=== PATIENT | female | born 1995 | race Caucasian/White ===

== ENCOUNTER 2021-01-08 07:39 | Inpatient (IN) | payer OTHER ==
[~2021-01-08] VITALS: Ht 162.6 cm; Wt 88.6 kg
[~2021-01-08 07:39] MED LIST: PREN1TAB60 PO
[2021-01-08 08:36] LABS: BASOPHILS % (AUTO) 1 % (0-1); EOSINOPHILS % (AUTO) 0 % (1-7); LYMPHOCYTES % (AUTO) 14 % (22-44); MEAN CORPUSCULAR HEMOGLOBIN 31.6 pg (27.0-34.8); MEAN CORPUSCULAR HGB CONC 33.8 g/dL (32.4-35.8); MEAN PLATELET VOLUME 8.5 fL (7.4-10.4); MONOCYTES % (AUTO) 6 % (2-9); NEUTROPHILS % (AUTO) 79 % (42-75); PLATELET COUNT 132 x10^3/uL (130-400); RED BLOOD COUNT 3.87 x10^6/uL (3.82-5.3)
[2021-01-08 08:47] LABS: ALANINE AMINOTRANSFERASE 341 U/L (12-78); ALBUMIN 2.5 g/dL (3.4-5.0); ANION GAP 7 mmol/L (5-15); BILIRUBIN, DIRECT 0.1 mg/dL (0.1-0.2); CALCIUM 8.9 mg/dL (8.5-10.1); CHLORIDE 106 mmol/L (98-107); CREATININE 0.65 mg/dL (0.55-1.02)
[2021-01-08 08:50] LABS: ALKALINE PHOSPHATASE 95 U/L (45-117); BILIRUBIN,TOTAL 0.6 mg/dL (0.2-1.0); TOTAL PROTEIN 6.5 g/dL (6.4-8.2)
[2021-01-08 08:53] LABS: MD SCAN
[2021-01-08 08:55] LABS: MICROSCOPIC INDICATED
[2021-01-08] MEDS ORDERED: OXYcodone IR 5MG TABLET ONE (08:56)
[2021-01-08] MEDS ORDERED: ONDANSETRON 2MG/ML, 2ML ONE ×2 (08:56→19:25)
[2021-01-08] MEDS ORDERED: PLEASE ENTER HEIGHT AND WEIGHT MC SCH (09:00)
[2021-01-08] MEDS ORDERED: LACTATED RINGERS 1,000 ML IVBOLUS ONE ×2 (09:00→10:30)
[2021-01-08] MEDS: ONDANSETRON 2MG/ML, 2ML IVPush PRN ×2 (09:02→19:26)
[2021-01-08] MEDS: OXYcodone 5 MG/5 ML ORAL.SOL UDC PO PRN (09:03)
[2021-01-08 09:15] VITALS: BP 150/98
[2021-01-08] MEDS ORDERED: MAGNESIUM SULF. PMX 20GM/500ML 500 ML IV ONE ×2 (09:30→16:52)
[2021-01-08] MEDS ORDERED: MAGNESIUM SULFATE PMX 4GM/100M 100 ML IVPB ONE (10:00)
[2021-01-08] MEDS: MAGNESIUM SULF. PMX 20GM/500ML 500 ML IV SCH ×2 (10:11→17:27)
[2021-01-08] MEDS ORDERED: FENTANYL PF 100 MCG/2ML ONE (10:29)
[2021-01-08] MEDS ORDERED: SODIUM CITRATE/CITRIC ACID 30 ML UDC PO ONE (10:30)
[2021-01-08] MEDS: LACTATED RINGERS 1,000 ML IV SCH ×3 (10:30→18:30)
[2021-01-08] MEDS ORDERED: METOCLOPRAMIDE 5 MG/ML, 2ML IV ONE (10:30)
[2021-01-08] MEDS ORDERED: CEFAZOLIN 1,000 MG ONE ×2 (10:31)
[2021-01-08] MEDS ORDERED: OXYTOCIN 10 UNITS/ML, 1ML ONE ×7 (10:31→12:03)
[2021-01-08] MEDS ORDERED: NEWBORN KIT ONE ×2 (10:38)
[2021-01-08 10:58] LABS: BASOPHILS % (AUTO) 0 % (0-1); EOSINOPHILS % (AUTO) 0 % (1-7); LYMPHOCYTES % (AUTO) 11 % (22-44); MEAN CORPUSCULAR HEMOGLOBIN 31.5 pg (27.0-34.8); MEAN PLATELET VOLUME 8.4 fL (7.4-10.4); MONOCYTES % (AUTO) 5 % (2-9); NEUTROPHILS % (AUTO) 84 % (42-75); PLATELET COUNT 84 x10^3/uL (130-400); RED BLOOD COUNT 3.86 x10^6/uL (3.82-5.3); RED CELL DISTRIBUTION WIDTH 14.9 % (9.6-15.2)
[2021-01-08 11:10] LABS: INTERNATIONAL NORMALIZED RATIO 1.02 (0.93-1.1); PROTHROMBIN TIME 10.9 Seconds (9.6-11.5)
[2021-01-08] MEDS ORDERED: SODIUM CITRATE/CITRIC ACID 15 ML UDC ONE (11:15)
[2021-01-08] MEDS ORDERED: METOCLOPRAMIDE 5 MG/ML, 2ML ONE (11:15)
[2021-01-08 11:26] LABS: MD SCAN
[2021-01-08] MEDS ORDERED: TRANEXAMIC ACID 100 MG/ML, 10ML ONE (12:01)
[2021-01-08] MEDS ORDERED: MISOPROSTOL 200 MCG TABLET ONE (12:06)
[2021-01-08] MEDS ORDERED: MISOPROSTOL 200 MCG TABLET PR PRN (13:00)
[2021-01-08] MEDS ORDERED: EPHEDRINE 50 MG/ML, 1ML IVPush PRN (13:00)
[2021-01-08] MEDS ORDERED: METOCLOPRAMIDE 5 MG/ML, 2ML IVPush PRN (13:00)
[2021-01-08] MEDS ORDERED: TRANEXAMIC ACID 100 MG/ML, 10ML IV ONE (13:00)
[2021-01-08] MEDS ORDERED: ONDANSETRON 2MG/ML, 2ML IVPush PRN (13:00)
[2021-01-08] MEDS ORDERED: LABETALOL 5MG/ML, 20ML IV PRN (13:00)
[2021-01-08] MEDS ORDERED: DIPHENHYDRAMINE 50 MG/ML, 1ML IVPush PRN (13:00)
[2021-01-08] MEDS ORDERED: OXYcodone 5 MG/5 ML ORAL.SOL UDC PO PRN (13:00)
[2021-01-08] MEDS ORDERED: FENTANYL PF 100 MCG/2ML IV PRN (13:00)
[2021-01-08] MEDS ORDERED: MEPERIDINE/PF 50 MG/ML ONE (13:12)
[2021-01-08] MEDS: MEPERIDINE/PF 25MG/0.5ML IVPush PRN ×2 (13:16→13:37)
[2021-01-08] MEDS ORDERED: OXYcodone 5 MG/5 ML ORAL.SOL UDC ONE (14:10)
[2021-01-08 14:19] LABS: ALANINE AMINOTRANSFERASE 535 U/L (12-78); ALBUMIN 2.6 g/dL (3.4-5.0); ANION GAP 9 mmol/L (5-15); CALCIUM 8.6 mg/dL (8.5-10.1); CHLORIDE 105 mmol/L (98-107); CREATININE 0.52 mg/dL (0.55-1.02)
[2021-01-08 14:21] LABS: ALKALINE PHOSPHATASE 102 U/L (45-117); BILIRUBIN,TOTAL 1.1 mg/dL (0.2-1.0); TOTAL PROTEIN 6.1 g/dL (6.4-8.2)
[2021-01-08] MEDS ORDERED: OXYTOCIN 30U/ 0.9% NaCL 500ML 500 ML ONE (14:28)
[2021-01-08] MEDS: OXYTOCIN 30U/ 0.9% NaCL 500ML 500 ML IV SCH (14:32)
[2021-01-08 15:16] LABS: MEAN CORPUSCULAR HGB CONC 34.7 g/dL (32.4-35.8); MEAN PLATELET VOLUME 8.2 fL (7.4-10.4); RED BLOOD COUNT 3.26 x10^6/uL (3.82-5.3); RED CELL DISTRIBUTION WIDTH 15.2 % (9.6-15.2)
[2021-01-08 15:28] LABS: ALANINE AMINOTRANSFERASE 692 U/L (12-78); ANION GAP 7 mmol/L (5-15); CALCIUM 7.6 mg/dL (8.5-10.1); CHLORIDE 105 mmol/L (98-107); CREATININE 0.62 mg/dL (0.55-1.02)
[2021-01-08 15:35] LABS: ALKALINE PHOSPHATASE 94 U/L (45-117); BILIRUBIN,TOTAL 1.9 mg/dL (0.2-1.0); TOTAL PROTEIN 5.2 g/dL (6.4-8.2)
[2021-01-08 15:37] LABS: PLATELET COUNT 39 x10^3/uL (130-400)
[2021-01-08 15:39] LABS: MD YES
[2021-01-08 15:56] LABS: BAND#(MANUAL) 0.94 x10^3/uL; BANDS%(MANUAL) 8 % (0-7); LYMPH#(MANUAL) 1.29 x10^3/uL (1-3.4); LYMPHS% (MANUAL) 11 % (22-44); METAMYELOCYTES# (MANUAL) 0.23 x10^3/uL (0-0); METAMYELOCYTES% (MANUAL) 2 % (0-1); MONOS#(MANUAL) 0.59 x10^3/uL (0.3-2.7); MONOS% (MANUAL) 5 % (2-9); SEG#(MANUAL) 8.66 x10^3/uL (1.8-6.8); SEGS% (MANUAL) 74 % (42-75)
[2021-01-08 16:01] LABS: <PLATELET ESTIMATE> DECREASED; <PLT MORPHOLOGY> NORMAL PLT MORPH; POLYCHROMASIA 1+
[2021-01-08] MEDS ORDERED: morphine SULFATE 10 MG/ML, 1ML ONE ×3 (16:12→22:24)
[2021-01-08] MEDS: MORPHINE SULFATE 4 MG/ML, 1ML IVPush PRN (16:17)
[2021-01-08 18:03] LABS: MEAN CORPUSCULAR HEMOGLOBIN 32.2 pg (27.0-34.8); RED BLOOD COUNT 3.19 x10^6/uL (3.82-5.3); RED CELL DISTRIBUTION WIDTH 15.2 % (9.6-15.2)
[2021-01-08 18:14] LABS: ALBUMIN 2.1 g/dL (3.4-5.0); ANION GAP 7 mmol/L (5-15); CALCIUM 7.7 mg/dL (8.5-10.1); CHLORIDE 102 mmol/L (98-107)
[2021-01-08 18:22] LABS: ALANINE AMINOTRANSFERASE 709 U/L (12-78); ALKALINE PHOSPHATASE 86 U/L (45-117); BILIRUBIN,TOTAL 2.3 mg/dL (0.2-1.0); TOTAL PROTEIN 5.2 g/dL (6.4-8.2)
[2021-01-08 18:57] LABS: MD YES; PLATELET COUNT 30 x10^3/uL (130-400)
[2021-01-08 19:01] LABS: BAND#(MANUAL) 1.34 x10^3/uL; BANDS%(MANUAL) 12 % (0-7); LYMPH#(MANUAL) 1.46 x10^3/uL (1-3.4); LYMPHS% (MANUAL) 13 % (22-44); METAMYELOCYTES# (MANUAL) 0.11 x10^3/uL (0-0); METAMYELOCYTES% (MANUAL) 1 % (0-1); MONOS#(MANUAL) 0.34 x10^3/uL (0.3-2.7); MONOS% (MANUAL) 3 % (2-9); MYELOCYTES# (MANUAL) 0.11 x10^3/uL (0-0); MYELOCYTES% (MANUAL) 1 % (0-0); SEG#(MANUAL) 7.84 x10^3/uL (1.8-6.8); SEGS% (MANUAL) 70 % (42-75)
[2021-01-08 19:02] LABS: <PLATELET ESTIMATE> DECREASED; <PLT MORPHOLOGY> NORMAL PLT MORPH; POLYCHROMASIA 1+
[2021-01-08] MEDS: morphine SULFATE 10 MG/ML, 1ML IVPush PRN ×2 (19:24→22:30)
[2021-01-08 20:26] LABS: MEAN CORPUSCULAR HEMOGLOBIN 31.9 pg (27.0-34.8); MEAN PLATELET VOLUME 7.1 fL (7.4-10.4); RED BLOOD COUNT 3.07 x10^6/uL (3.82-5.3); RED CELL DISTRIBUTION WIDTH 15.4 % (9.6-15.2)
[2021-01-08 21:08] LABS: MD YES; PLATELET COUNT 24 x10^3/uL (130-400)
[2021-01-08 21:10] LABS: BAND#(MANUAL) 0.24 x10^3/uL; BANDS%(MANUAL) 2 % (0-7); LYMPH#(MANUAL) 3.15 x10^3/uL (1-3.4); LYMPHS% (MANUAL) 26 % (22-44); MONOS#(MANUAL) 0.36 x10^3/uL (0.3-2.7); MONOS% (MANUAL) 3 % (2-9); SEG#(MANUAL) 8.35 x10^3/uL (1.8-6.8); SEGS% (MANUAL) 69 % (42-75)
[2021-01-08 21:11] LABS: <PLATELET ESTIMATE> DECREASED; ANISOCYTOSIS 1+; SMALL PLATELETS 1+
[2021-01-09] MEDS: LACTATED RINGERS 1,000 ML IV SCH ×7 (01:00→18:30)
[2021-01-09] MEDS: morphine SULFATE 10 MG/ML, 1ML IVPush PRN (02:16)
[2021-01-09 02:22] LABS: BASOPHILS % (AUTO) 0 % (0-1); EOSINOPHILS % (AUTO) 1 % (1-7); LYMPHOCYTES % (AUTO) 18 % (22-44); MEAN CORPUSCULAR HEMOGLOBIN 31.8 pg (27.0-34.8); MEAN PLATELET VOLUME 7.9 fL (7.4-10.4); MONOCYTES % (AUTO) 7 % (2-9); NEUTROPHILS % (AUTO) 74 % (42-75); RED BLOOD COUNT 3.05 x10^6/uL (3.82-5.3); RED CELL DISTRIBUTION WIDTH 15.4 % (9.6-15.2)
[2021-01-09 02:33] LABS: INTERNATIONAL NORMALIZED RATIO 1.07 (0.93-1.1); PROTHROMBIN TIME 11.4 Seconds (9.6-11.5)
[2021-01-09 02:34] LABS: ALBUMIN 1.9 g/dL (3.4-5.0); ANION GAP 7 mmol/L (5-15); CHLORIDE 99 mmol/L (98-107)
[2021-01-09 02:42] LABS: CALCIUM 6.9 mg/dL (8.5-10.1)
[2021-01-09 02:43] LABS: ALANINE AMINOTRANSFERASE 635 U/L (12-78); ALKALINE PHOSPHATASE 86 U/L (45-117); BILIRUBIN,TOTAL 1.9 mg/dL (0.2-1.0); CREATININE 0.65 mg/dL (0.55-1.02); TOTAL PROTEIN 5.1 g/dL (6.4-8.2)
[2021-01-09] MEDS ORDERED: MAGNESIUM SULF. PMX 20GM/500ML 500 ML IV ONE ×3 (02:45→21:33)
[2021-01-09] MEDS: MAGNESIUM SULF. PMX 20GM/500ML 500 ML IV SCH ×3 (02:47→21:50)
[2021-01-09 02:51] LABS: PLATELET COUNT 23 x10^3/uL (130-400)
[2021-01-09] MEDS ORDERED: OXYTOCIN 30U/ 0.9% NaCL 500ML 500 ML ONE (02:58)
[2021-01-09 03:00] LABS: MD SCAN
[2021-01-09] MEDS: OXYTOCIN 30U/ 0.9% NaCL 500ML 500 ML IV SCH ×3 (03:06→19:00)
[2021-01-09] MEDS ORDERED: MORPHINE SULFATE 4 MG/ML, 1ML ONE (05:00)
[2021-01-09] MEDS: MORPHINE SULFATE 4 MG/ML, 1ML IVPush PRN (05:06)
[2021-01-09 07:00] VITALS: BP 116/77
[2021-01-09] MEDS ORDERED: PRENATAL VIT/IRON/FA 1 EACH TABLET ONE (08:49)
[2021-01-09] MEDS ORDERED: DOCUSATE 100 MG CAPSULE ONE ×2 (08:49→22:03)
[2021-01-09] MEDS ORDERED: OXYcodone 5 MG/5 ML ORAL.SOL UDC ONE ×4 (08:50→21:33)
[2021-01-09] MEDS: PRENATAL VIT/IRON/FA 1 EACH TABLET PO SCH (08:52)
[2021-01-09] MEDS: OXYcodone 5 MG/5 ML ORAL.SOL UDC PO PRN ×4 (08:52→21:36)
[2021-01-09] MEDS: DOCUSATE 100 MG CAPSULE PO PRN ×2 (08:53→22:04)
[2021-01-09 12:33] LABS: MEAN CORPUSCULAR HEMOGLOBIN 31.8 pg (27.0-34.8); MEAN CORPUSCULAR HGB CONC 35.1 g/dL (32.4-35.8); MEAN PLATELET VOLUME 8.6 fL (7.4-10.4); RED BLOOD COUNT 3.07 x10^6/uL (3.82-5.3); RED CELL DISTRIBUTION WIDTH 15.3 % (9.6-15.2)
[2021-01-09 12:45] LABS: ALANINE AMINOTRANSFERASE 520 U/L (12-78); ALBUMIN 1.9 g/dL (3.4-5.0); ANION GAP 6 mmol/L (5-15); CALCIUM 6.5 mg/dL (8.5-10.1); CHLORIDE 92 mmol/L (98-107); CREATININE 0.52 mg/dL (0.55-1.02)
[2021-01-09 12:56] LABS: ALKALINE PHOSPHATASE 87 U/L (45-117); BILIRUBIN,TOTAL 1.6 mg/dL (0.2-1.0); TOTAL PROTEIN 5.1 g/dL (6.4-8.2)
[2021-01-09 13:04] LABS: MD YES
[2021-01-09 13:05] LABS: PLATELET COUNT 27 x10^3/uL (130-400)
[2021-01-09 13:06] LABS: BAND#(MANUAL) 1.22 x10^3/uL; BANDS%(MANUAL) 6 % (0-7); EOS#(MANUAL) 0.41 x10^3/uL (0.0-0.4); EOS% (MANUAL) 2 % (1-7); LYMPH#(MANUAL) 3.06 x10^3/uL (1-3.4); LYMPHS% (MANUAL) 15 % (22-44); METAMYELOCYTES# (MANUAL) 0.41 x10^3/uL (0-0); METAMYELOCYTES% (MANUAL) 2 % (0-1); MONOS#(MANUAL) 0.61 x10^3/uL (0.3-2.7); MONOS% (MANUAL) 3 % (2-9); SEG#(MANUAL) 14.69 x10^3/uL (1.8-6.8); SEGS% (MANUAL) 72 % (42-75)
[2021-01-09 13:07] LABS: <PLATELET ESTIMATE> DECREASED; ANISOCYTOSIS 1+; LARGE PLATELETS 1+; POLYCHROMASIA 1+
[2021-01-09 19:25] VITALS: BP 123/77
[2021-01-09] MEDS ORDERED: SIMETHICONE 80 MG CHEW TAB ONE (19:36)
[2021-01-09] MEDS: SIMETHICONE 80 MG CHEW TAB PO PRN (19:37)
[2021-01-10 00:36] VITALS: BP 121/69
[2021-01-10] MEDS: LACTATED RINGERS 1,000 ML IV SCH ×6 (01:00→18:30)
[2021-01-10] MEDS ORDERED: OXYcodone IR 5MG TABLET ONE ×3 (04:45→15:52)
[2021-01-10] MEDS: OXYcodone IR 5MG TABLET PO PRN ×4 (04:47→20:49)
[2021-01-10] MEDS: OXYTOCIN 30U/ 0.9% NaCL 500ML 500 ML IV SCH ×2 (05:00→15:00)
[2021-01-10 06:23] LABS: MEAN CORPUSCULAR HEMOGLOBIN 31.4 pg (27.0-34.8); MEAN CORPUSCULAR HGB CONC 34.6 g/dL (32.4-35.8); MEAN PLATELET VOLUME 10.3 fL (7.4-10.4); PLATELET COUNT 52 x10^3/uL (130-400); RED BLOOD COUNT 3.19 x10^6/uL (3.82-5.3); RED CELL DISTRIBUTION WIDTH 15.3 % (9.6-15.2)
[2021-01-10 06:31] LABS: ALANINE AMINOTRANSFERASE 350 U/L (12-78); ALBUMIN 1.9 g/dL (3.4-5.0); ANION GAP 8 mmol/L (5-15); CALCIUM 6.8 mg/dL (8.5-10.1); CHLORIDE 96 mmol/L (98-107); CREATININE 0.58 mg/dL (0.55-1.02)
[2021-01-10 06:33] LABS: ALKALINE PHOSPHATASE 104 U/L (45-117); BILIRUBIN,TOTAL 0.9 mg/dL (0.2-1.0)
[2021-01-10 07:12] LABS: MD YES
[2021-01-10 07:13] LABS: LYMPH#(MANUAL) 2.32 x10^3/uL (1-3.4); LYMPHS% (MANUAL) 10 % (22-44); MONOS#(MANUAL) 0.23 x10^3/uL (0.3-2.7); MONOS% (MANUAL) 1 % (2-9); SEG#(MANUAL) 20.65 x10^3/uL (1.8-6.8); SEGS% (MANUAL) 89 % (42-75)
[2021-01-10 07:14] LABS: <PLATELET ESTIMATE> DECREASED; ANISOCYTOSIS 1+; LARGE PLATELETS 1+; POLYCHROMASIA 1+
[2021-01-10] MEDS: PRENATAL VIT/IRON/FA 1 EACH TABLET PO SCH (09:00)
[2021-01-10] MEDS ORDERED: DOCUSATE 100 MG CAPSULE ONE (11:18)
[2021-01-10] MEDS: DOCUSATE 100 MG CAPSULE PO PRN ×2 (11:19→20:49)
[2021-01-10] MEDS ORDERED: ONDANSETRON 2MG/ML, 2ML ONE (12:16)
[2021-01-10] MEDS: ONDANSETRON 2MG/ML, 2ML IVPush PRN (12:19)
[2021-01-10] MEDS ORDERED: SIMETHICONE 80 MG CHEW TAB ONE (17:38)
[2021-01-10] MEDS: SIMETHICONE 80 MG CHEW TAB PO PRN (17:39)
[2021-01-10 20:41] VITALS: BP 112/76
[2021-01-10] MEDS ORDERED: NEOSPORIN OINT, 15GM TP ONE (23:30)
[2021-01-11] MEDS: OXYcodone IR 5MG TABLET PO PRN ×5 (00:53→21:47)
[2021-01-11 00:55] VITALS: BP 118/76
[2021-01-11] MEDS: LACTATED RINGERS 1,000 ML IV SCH ×6 (01:00→18:30)
[2021-01-11] MEDS: OXYTOCIN 30U/ 0.9% NaCL 500ML 500 ML IV SCH ×3 (01:00→20:54)
[2021-01-11 05:37] LABS: MEAN CORPUSCULAR HEMOGLOBIN 32.3 pg (27.0-34.8); MEAN CORPUSCULAR HGB CONC 34.9 g/dL (32.4-35.8); PLATELET COUNT 90 x10^3/uL (130-400); RED BLOOD COUNT 2.73 x10^6/uL (3.82-5.3)
[2021-01-11 05:47] LABS: ALBUMIN 1.8 g/dL (3.4-5.0); ANION GAP 6 mmol/L (5-15); CHLORIDE 109 mmol/L (98-107); MD YES
[2021-01-11 05:50] LABS: ALANINE AMINOTRANSFERASE 211 U/L (12-78); ALKALINE PHOSPHATASE 119 U/L (45-117); BILIRUBIN,TOTAL 0.8 mg/dL (0.2-1.0); CREATININE 0.59 mg/dL (0.55-1.02); TOTAL PROTEIN 5.7 g/dL (6.4-8.2)
[2021-01-11 06:12] LABS: BAND#(MANUAL) 0.21 x10^3/uL; BANDS%(MANUAL) 1 % (0-7); EOS#(MANUAL) 0.41 x10^3/uL (0.0-0.4); EOS% (MANUAL) 2 % (1-7); LYMPH#(MANUAL) 3.11 x10^3/uL (1-3.4); LYMPHS% (MANUAL) 15 % (22-44); METAMYELOCYTES# (MANUAL) 0.21 x10^3/uL (0-0); METAMYELOCYTES% (MANUAL) 1 % (0-1); MONOS#(MANUAL) 0.21 x10^3/uL (0.3-2.7); MONOS% (MANUAL) 1 % (2-9); SEG#(MANUAL) 16.56 x10^3/uL (1.8-6.8); SEGS% (MANUAL) 80 % (42-75)
[2021-01-11 06:13] LABS: <PLATELET ESTIMATE> DECREASED; ANISOCYTOSIS 1+; POLYCHROMASIA 1+
[2021-01-11 06:14] LABS: LARGE PLATELETS 1+
[2021-01-11 07:30] VITALS: BP 124/77
[2021-01-11] MEDS: PRENATAL VIT/IRON/FA 1 EACH TABLET PO SCH (10:41)
[2021-01-11] MEDS: DOCUSATE 100 MG CAPSULE PO PRN (10:41)
[2021-01-11 11:55] VITALS: BP 129/86
[2021-01-11] MEDS ORDERED: DIPH,PERTUSS(ACELL),TET VAC/PF NC IM-VACC ONE (14:00)
[2021-01-11 16:25] VITALS: BP 119/77
[2021-01-11 20:00] VITALS: BP 147/94
[2021-01-12] MEDS: LACTATED RINGERS 1,000 ML IV SCH ×2 (01:00→02:30)
[2021-01-12] MEDS: OXYcodone IR 5MG TABLET PO PRN ×4 (03:58→22:03)
[2021-01-12] MEDS: OXYTOCIN 30U/ 0.9% NaCL 500ML 500 ML IV SCH (05:54)
[2021-01-12 07:50] VITALS: BP 118/78
[2021-01-12] MEDS: PRENATAL VIT/IRON/FA 1 EACH TABLET PO SCH (10:21)
[2021-01-12] MEDS: DOCUSATE 100 MG CAPSULE PO PRN ×2 (10:21→22:02)
[2021-01-12 18:48] LABS: MEAN CORPUSCULAR HEMOGLOBIN 32.4 pg (27.0-34.8); MEAN CORPUSCULAR HGB CONC 34.3 g/dL (32.4-35.8); MEAN PLATELET VOLUME 8.6 fL (7.4-10.4); PLATELET COUNT 218 x10^3/uL (130-400); RED BLOOD COUNT 3.14 x10^6/uL (3.82-5.3); RED CELL DISTRIBUTION WIDTH 16.1 % (9.6-15.2)
[2021-01-12 19:09] LABS: ALANINE AMINOTRANSFERASE 178 U/L (12-78); ALBUMIN 2.7 g/dL (3.4-5.0); ANION GAP 8 mmol/L (5-15); CALCIUM 9.3 mg/dL (8.5-10.1); CHLORIDE 104 mmol/L (98-107); CREATININE 0.62 mg/dL (0.55-1.02)
[2021-01-12 19:11] LABS: ALKALINE PHOSPHATASE 170 U/L (45-117); BILIRUBIN,TOTAL 0.7 mg/dL (0.2-1.0); TOTAL PROTEIN 7.6 g/dL (6.4-8.2)
[2021-01-12 19:13] LABS: MD YES
[2021-01-12 20:00] VITALS: BP 133/80
[2021-01-12 20:00] LABS: SEG#(MANUAL) 15.68 x10^3/uL (1.8-6.8)
[2021-01-12 20:01] LABS: BAND#(MANUAL) 0.23 x10^3/uL; BANDS%(MANUAL) 1 % (0-7); BASOS#(MANUAL) 0.23 x10^3/uL (0-0.1); BASOS% (MANUAL) 1 % (0-1); EOS#(MANUAL) 1.17 x10^3/uL (0.0-0.4); EOS% (MANUAL) 5 % (1-7); LYMPH#(MANUAL) 3.74 x10^3/uL (1-3.4); LYMPHS% (MANUAL) 16 % (22-44); METAMYELOCYTES# (MANUAL) 0.47 x10^3/uL (0-0); METAMYELOCYTES% (MANUAL) 2 % (0-1); MONOS#(MANUAL) 1.17 x10^3/uL (0.3-2.7); MONOS% (MANUAL) 5 % (2-9); MYELOCYTES% (MANUAL) 3 % (0-0); SEGS% (MANUAL) 67 % (42-75)
[2021-01-12 20:02] LABS: POLYCHROMASIA 1+
[2021-01-12 20:06] LABS: <PLATELET ESTIMATE> ADEQUATE; LARGE PLATELETS 1+
[2021-01-13] MEDS: OXYcodone IR 5MG TABLET PO PRN ×4 (03:50→17:57)
[2021-01-13 07:20] VITALS: BP 115/69
[2021-01-13] MEDS: DOCUSATE 100 MG CAPSULE PO PRN (08:46)
[2021-01-13] MEDS: PRENATAL VIT/IRON/FA 1 EACH TABLET PO SCH (08:46)
[2021-01-13 11:37] LABS: MEAN CORPUSCULAR HEMOGLOBIN 31.8 pg (27.0-34.8); MEAN CORPUSCULAR HGB CONC 33.7 g/dL (32.4-35.8); PLATELET COUNT 229 x10^3/uL (130-400); RED BLOOD COUNT 3.07 x10^6/uL (3.82-5.3); RED CELL DISTRIBUTION WIDTH 15.9 % (9.6-15.2)
[2021-01-13 11:46] LABS: ALBUMIN 2.7 g/dL (3.4-5.0); ANION GAP 7 mmol/L (5-15); CALCIUM 9.3 mg/dL (8.5-10.1); CHLORIDE 104 mmol/L (98-107)
[2021-01-13 11:50] LABS: ALANINE AMINOTRANSFERASE 133 U/L (12-78); ALKALINE PHOSPHATASE 167 U/L (45-117); BILIRUBIN,TOTAL 0.8 mg/dL (0.2-1.0); CREATININE 0.57 mg/dL (0.55-1.02); TOTAL PROTEIN 7.3 g/dL (6.4-8.2)
[2021-01-13 12:11] LABS: MD YES
[2021-01-13 12:15] LABS: BAND#(MANUAL) 1.78 x10^3/uL; BANDS%(MANUAL) 8 % (0-7); EOS#(MANUAL) 0.45 x10^3/uL (0.0-0.4); EOS% (MANUAL) 2 % (1-7); LYMPHS% (MANUAL) 13 % (22-44); METAMYELOCYTES# (MANUAL) 0.22 x10^3/uL (0-0); METAMYELOCYTES% (MANUAL) 1 % (0-1); MYELOCYTES# (MANUAL) 0.67 x10^3/uL (0-0); MYELOCYTES% (MANUAL) 3 % (0-0)
[2021-01-13 12:16] LABS: <PLATELET ESTIMATE> ADEQUATE; ANISOCYTOSIS 1+; LARGE PLATELETS 1+; MONOS#(MANUAL) 0.89 x10^3/uL (0.3-2.7); MONOS% (MANUAL) 4 % (2-9); PMNS WITH VACUOLES 1+; POLYCHROMASIA 1+; SEG#(MANUAL) 15.39 x10^3/uL (1.8-6.8); SEGS% (MANUAL) 69 % (42-75)
[2021-01-13 20:12] VITALS: BP 122/82
[2021-01-14] MEDS: OXYcodone IR 5MG TABLET PO PRN ×3 (05:28→14:02)
[2021-01-14 09:12] VITALS: BP 120/83
[2021-01-14] MEDS: PRENATAL VIT/IRON/FA 1 EACH TABLET PO SCH (09:39)
[2021-01-14] MEDS: DOCUSATE 100 MG CAPSULE PO PRN (09:39)
[2021-01-14 13:18] LABS: MEAN CORPUSCULAR HEMOGLOBIN 32.1 pg (27.0-34.8); MEAN CORPUSCULAR HGB CONC 33.8 g/dL (32.4-35.8); MEAN PLATELET VOLUME 8.5 fL (7.4-10.4); PLATELET COUNT 313 x10^3/uL (130-400); RED BLOOD COUNT 3.29 x10^6/uL (3.82-5.3); RED CELL DISTRIBUTION WIDTH 16.5 % (9.6-15.2)
[2021-01-14 13:41] LABS: MD YES
[2021-01-14 13:42] LABS: BAND#(MANUAL) 0.56 x10^3/uL; BANDS%(MANUAL) 3 % (0-7); EOS#(MANUAL) 0.19 x10^3/uL (0.0-0.4); EOS% (MANUAL) 1 % (1-7); METAMYELOCYTES# (MANUAL) 0.19 x10^3/uL (0-0); METAMYELOCYTES% (MANUAL) 1 % (0-1); MYELOCYTES# (MANUAL) 0.37 x10^3/uL (0-0); MYELOCYTES% (MANUAL) 2 % (0-0)
[2021-01-14 13:43] LABS: <PLATELET ESTIMATE> ADEQUATE; <PLT MORPHOLOGY> NORMAL PLT MORPH; ANISOCYTOSIS 1+; LYMPH#(MANUAL) 2.59 x10^3/uL (1-3.4); LYMPHS% (MANUAL) 14 % (22-44); MONOS#(MANUAL) 1.11 x10^3/uL (0.3-2.7); MONOS% (MANUAL) 6 % (2-9); POLYCHROMASIA 1+; SEG#(MANUAL) 13.51 x10^3/uL (1.8-6.8); SEGS% (MANUAL) 73 % (42-75)
[2021-01-14 14:29] LABS: MICROSCOPIC AUTO
[2021-01-14 14:31] VITALS: BP 123/92
== END 2021-01-14 15:14 | disposition home or self-care (01) | DRG 788 ==
LOC: LDOP 07:39 → LDIP 08:45 → 2NW 01-10 20:34
PROVIDERS: ADMIT Obstetrics & Gynecology Maternal & Fetal Medicine; ATTEND Obstetrics & Gynecology Maternal & Fetal Medicine
PROC: 10D00Z1 Extraction of Products of Conception, Low, Open Approach (ICD-10-PCS; principal; 2021-01-08)
DX: O30.042 Twin pregnancy, dichorionic/diamniotic, second trimester (principal); O14.14 Severe pre-eclampsia complicating childbirth; O36.5920 Maternal care for other known or suspected poor fetal growth, second trimester, not applicable or unspecified; Z20.822 Contact with and (suspected) exposure to COVID-19; O99.214 Obesity complicating childbirth; E66.9 Obesity, unspecified; Z3A.25 25 weeks gestation of pregnancy; Z37.2 Twins, both liveborn
CPT/HCPCS: 36415; 76705; 76770; 80053; 81001; 82140; 82150; 82248; 82570; 82962; 83615; 83690; 83735; 84156; 84550; 85025; 85384; 85610; 85730; 86592; 86850; 86900; 86923; 87086; 87635; 88305; 90715; G0378; J0690; J2175; J2405; J3010; J2270; J2590; J2765; J3475; J7120